=== PATIENT | female | born 1960 | race Caucasian/White ===

== ENCOUNTER → 2019-11-12 | Outpatient (CLI) | payer BC ==
--- NOTE | 2019-11-12 15:01 | Diagnostic Imaging Report ---
EXAMINATION: HAND TWO VIEWS BILATERAL INDICATION: Hand pain COMPARISON: None FINDINGS: No acute fracture or dislocation of either hand. Alignment is anatomic. Soft tissues appear unremarkable. IMPRESSION: No acute osseous injury of either hand. Signed by: Johnathon Marina MD on 11/12/2019 2:57 PM
== END ==
LOC: RAD 14:25
PROVIDERS: ATTEND Internal Medicine
DX: M25.542 Pain in joints of left hand (principal); M25.541 Pain in joints of right hand